=== PATIENT | male | born 1950 | race Caucasian/White ===

== ENCOUNTER 2017-05-20 19:01 | Emergency (ER) | payer SELFPAY ==
[~2017-05-20] VITALS: Ht 160 cm; Wt 67.0 kg
[2017-05-20 20:01] VITALS: BP 116/78
[2017-05-21] MEDS ORDERED: TETRACAINE 0.5% OPHTH DROPS 4ML OP ONE (01:30)
[2017-05-21] MEDS ORDERED: FLUORESCEIN SODIUM 1MG/STRIP OP ONE (01:30)
== END 2017-05-21 03:25 | disposition home or self-care (01) ==
LOC: ER 19:01
DX: T15.11XA Foreign body in conjunctival sac, right eye, initial encounter (principal); R05 Cough; Y92.89 Other specified places as the place of occurrence of the external cause
CPT/HCPCS: 99282